=== PATIENT | male | born 1970 | race Caucasian/White ===

== ENCOUNTER → 2020-05-23 20:21 | Outpatient (CLI) | payer OTHER, SELFPAY ==
[2020-05-23 19:02] VITALS: BMI 37.6
[2020-05-23 20:43] LABS: ALB/GLOB Ratio 1.2 RATIO (0.9-2.4); AST(SGOT) 30 U/L (15-37); Absolute Lymphocyte Count 3.58 X10^3/uL (0.83-4.51); Absolute Neutrophil Count 4.5 X10^3/uL (2.0-7.7); Alanine Aminotransfer ALT/SGPT 57 U/L (16-61); Albumin, Serum 3.8 g/dL (3.2-5.0); Alkaline Phosphatase 52 U/L (45-117); Anion Gap 7 (5-15); BUN 16 mg/dL (7-18); BUN/Creat Ratio 16.7 RATIO (10-20); Basophil# 0.03 X10^3/uL; Basophil% 0.3 % (0-1); Calcium,Total 8.5 mg/dL (8.5-10.1); Chloride 111 mmol/L (98-107); Creatinine, Serum 0.96 mg/dL (0.70-1.30); EST Glomerular Filtration Rate 89 mL/min (>60); Eosinophil# 0.18 X10^3/uL; Est Glom Filt Rate - Afr Amer 108 mL/min (>60); Globulin 3.2 g/dL (2.2-4.2); Glucose 127 mg/dL (74-106); Hematocrit 46.2 % (40-54); Hemoglobin 15.5 g/dL (13.0-16.5); Lymphocyte # 3.58 X10^3/ul (4.0); Lymphocyte % 40.6 % (19-41); Mean Corp Hgb Conc 33.5 g/dL (32-36); Mean Corpuscular Hgb 31.2 pg (27.0-32.0); Mean Platelet Vol. 12.1 fl (6.2-12.0); Monocyte# 0.53 X10^3/uL; NRBC Flagged by Analyzer 0 % (0-5); Neutrophil # 4.47 X10^3/uL (2.7-7.7); Neutrophil % 50.9 % (47-70); Platelet Count 227 K/mm3 (150-450); Potassium 3.6 mmol/L (3.5-5.1); RBC Distribution Width CV 12.7 % (11.6-14.6); RBC Distribution Width SD 43.3 fl (35.1-43.9); Red Blood Count 4.97 M/mm3 (4.6-6.2); Sodium Level 143 mmol/L (136-145); White Blood Count 8.8 K/mm3 (4.4-11.0)
== END ==
PROVIDERS: Referring Provider Nurse Practitioner; Visit Provider Nurse Practitioner
DX: K21.9 Gastro-esophageal reflux disease without esophagitis (principal)
CPT/HCPCS: 80053; 85025

== ENCOUNTER → 2021-05-29 22:27 | Outpatient (CLI) | payer OTHER, SELFPAY ==
[2021-05-29 18:26] VITALS: BMI 36.7
[2021-05-29 22:44] LABS: Absolute Lymphocyte Count 3.51 X10^3/uL (0.83-4.51); Absolute Neutrophil Count 5.1 X10^3/uL (2.0-7.7); Basophil# 0.04 X10^3/uL; Basophil% 0.4 % (0-1); Eosinophil# 0.17 X10^3/uL; Eosinophils% 1.8 % (0-5); Hematocrit 48.7 % (40-54); Lymphocyte # 3.51 X10^3/ul (0.83-4.51); Lymphocyte % 36.8 % (19-41); Mean Corp Hgb Conc 32.9 g/dL (32-36); Mean Corpuscular Hgb 31.2 pg (27.0-32.0); Mean Corpuscular Volume 94.9 fL (80-94); Mean Platelet Vol. 12.5 fl (6.2-12.0); Monocyte# 0.71 X10^3/uL; Monocyte% 7.4 % (0-10); NRBC Flagged by Analyzer 0 % (0-5); Neutrophil % 53.4 % (47-70); Platelet Count 264 K/mm3 (150-450); RBC Distribution Width CV 12.7 % (11.6-14.6); RBC Distribution Width SD 44.6 fl (35.1-43.9); Red Blood Count 5.13 M/mm3 (4.6-6.2); White Blood Count 9.6 K/mm3 (4.4-11.0)
[2021-05-29 23:00] LABS: ALB/GLOB Ratio 1.3 RATIO (0.9-2.4); AST(SGOT) 31 U/L (15-37); Alanine Aminotransfer ALT/SGPT 57 U/L (16-61); Albumin, Serum 4.2 g/dL (3.2-5.0); Alkaline Phosphatase 55 U/L (45-117); Anion Gap 7 (5-15); BUN 16 mg/dL (7-18); Calcium,Total 9.2 mg/dL (8.5-10.1); Chloride 106 mmol/L (98-107); Cholesterol 230 mg/dL (200); EST Glomerular Filtration Rate 84 mL/min (>60); Est Glom Filt Rate - Afr Amer 102 mL/min (>60); Globulin 3.2 g/dL (2.2-4.2); Glucose 99 mg/dL (74-106); High Density Lipoprotein 37 mg/dL; Potassium 4.2 mmol/L (3.5-5.1); Protein, Total 7.4 g/dL (6.4-8.2); Sodium Level 143 mmol/L (136-145); Triglycerides 302 mg/dL; Very Low Density Lipoprotein 60 mg/dL (5-40)
== END ==
PROVIDERS: Visit Provider Nurse Practitioner
DX: K21.9 Gastro-esophageal reflux disease without esophagitis (principal); K44.9 Diaphragmatic hernia without obstruction or gangrene; E78.00 Pure hypercholesterolemia, unspecified
CPT/HCPCS: 80053; 80061; 85025

== ENCOUNTER → 2021-05-30 09:39 | Outpatient (CLI) | payer OTHER, SELFPAY ==
[2021-05-29 18:26] VITALS: BMI 36.7
== END ==
PROVIDERS: Referring Provider Nurse Practitioner; Visit Provider Nurse Practitioner
DX: K21.9 Gastro-esophageal reflux disease without esophagitis (principal); K44.9 Diaphragmatic hernia without obstruction or gangrene

== ENCOUNTER 2021-06-28 07:58 | Day surgery (SDC) | payer OTHER, SELFPAY ==
[2021-06-08 13:58] VITALS: BMI 36.2
[2021-06-28 08:29] VITALS: BP 113/85; PULSE 72; RESP 16; TEMP 36.4; O2SAT 98; BMI 35.9
[2021-06-28] MEDS: Lactated Ringers 1,000 ML 100 ML IV (08:34)
--- NOTE | 2021-06-28 09:00 | IMM_PTH ---
PATIENT: PEÑA FRITZ LOC: EN U#:[id number] AGE/SX: 51/M ROOM: RE06/28/[address]: Dr. Abel Hall MD : 1970 BED: DIS: 06/28/2021 SPEC #: [id number] RECD: 06/28/21 12:50 STATUS: AZAM RESmita #: [id number] JIM: 06/28/21 09:[address]: Abel Hall DEPT: IMMUNOHISTOCHEMISTRY RECD BY: Shannan Verde ENTERED: 06/28/21 12:51 SP TYPE: IMMUNO OTHR DR: Beverley Ma, DESK PEN SET ASSEMBLER-C Tissues: A - Stomach, NOS Procedures: H Pylori (initial) PHYSICIAN & INSTITUTION [place] [id number] SPECIMEN INFORMATION: Tissue Source: A ? Antrum biopsy Clinical Info: Hiatal hernia; GERD Specimen Number: [id number] CPT code: 69840 METHODOLOGY: Deparaffinized sections of prefer/formalin-fixed tissue or PAP/DQ stained slides are incubated with monoclonal/polyclonal antibodies/oligonucleotide probes. Localization is made via biotin free immunoperoxidase method. Appropriate controls are performed and reacted as expected. Results on target cell population are indicated in the following table: RESULTS: ANTIBODY / CLONE RESULT Block A H Pylori (polyclonal) negative These tests were developed and their performance characteristics determined by [facility]. They may not have been cleared or approved by the U.S. Food and Drug Administration. The FDA has determined that such clearance or approval is not necessary. INTERPRETATION: A. Antrum biopsy: Negative for Helicobacter pylori organisms. DANIELA:tony 06/29/2021
--- NOTE | 2021-06-28 09:00 | EGD_PTH ---
PATIENT: PEÑA FRITZ LOC: EN U#:[id number] AGE/SX: 51/M ROOM: RE06/28/[address]: Dr. Abel Hall MD : 1970 BED: DIS: 06/28/2021 SPEC #: [id number] RECD: 06/28/21 11:42 STATUS: AZAM ERICK #: [id number] JIM: 06/28/21 09:[address]: Abel Hall DEPT: SURGICAL PATHOLOGY RECD BY: Sara Salazar ENTERED: 06/28/21 12:33 SP TYPE: EGD BIOPSY OTHR DR: Beverley Ma, DELPHINEC Tissues: A - Gastric mucous membrane B - Gastric mucous membrane C - Gastric mucous membrane D - Sigmoid colon biopsy Procedures: Special Stain Group II Surgery Specimen Level IV Alcian Blue/PAS (control) HEADER OPERATION: Colonoscopy, EGD [place] [place] PRE-OP DIAGNOSIS: Hiatal hernia, GERD TISSUE SUBMITTED: A - Antrum biopsy for histo and H. pylori, B - Gastric polyps x3, C - GE junction biopsy, D - Sigmoid polyp biopsy MICROSCOPIC DIAGNOSIS A. Antrum biopsy: Mild gastritis. See microscopic description and comment. B. Gastric polyps x3, biopsy: Fragments of fundic gland polyps. C. GE junction, biopsy: Fragments of gastroesophageal mucosa with mild chronic inflammation. Intestinal metaplasia (goblet cell metaplasia) not identified. See comment. D. Sigmoid colon polyp, biopsy: Tubular adenoma. SJ:tony 06/29/2021 COMMENT A. The results of immunohistochemistry for Helicobacter pylori will be reported separately ([id number]). C. Alcian blue/PAS stain with matched control is used in the evaluation of the specimen. MICROSCOPIC DESCRIPTION Slides are reviewed. A. The specimen shows fragments of gastric mucosa with chronic inflammatory cell infiltrates in the lamina propria consisting of lymphocytes and plasma cells, consistent with mild chronic gastritis. GROSS DESCRIPTION A - Received in fixative is one container labeled with the patient's name and designated antrum biopsy. The specimen consists of multiple irregular fragments of light pierre soft tissue that in aggregate measure 0.7 x 0.6 x 0.1 cm. The specimen is totally submitted in one cassette. B - Received in fixative is one container labeled with the patient's name and designated gastric polyps. The specimen consists of three variable sized pieces of pierre-pink polyp that in aggregate measure 1.5 x 0.5 x 0.3 cm. The specimen is totally submitted in one cassette. C - Received in fixative is one container labeled with the patient's name and designated GE junction biopsy. The specimen consists of two irregular fragments of light pierre soft tissue that in aggregate measure 0.6 x 0.2 x 0.1 cm. The specimen is totally submitted in one cassette. D - Received in fixative is one container labeled with the patient's name and designated sigmoid polyp biopsy. The specimen consists of two irregular fragments of light pierre soft tissue that in aggregate measure 0.3 x 0.2 x 0.1 cm. The specimen is totally submitted in one cassette. / SJ:rg 06/28/21 TC:5 CPT: 55085 x4, 56724
--- NOTE | 2021-06-28 09:46 | PCM.HP.BLA ---
History and Physical Date of Service: 06/08/21 MR#:[id number]:[id number]: PEÑA SULLIVAN [facility] #:[id number]:1970 Provider:Annmarie Morales/Sex: 51/M [facility]:[place] Intake Vital Signs 06/08/21 09:58 06/08/21 13:58 Height 6 ft 2 in Weight: 282 lb 8 oz BMI 36.7 36.2 BP 115/79 Blood Pressure Location Rt brachial Position Sitting Respiration 16 Pulse 78 Pulse Source Monitor Temp 97.7 F L Temp Source Temporal Pulse Oximetry (%) 98 Oxygen Delivery Method room air Intake Visit Reasons: HIATAL HERNIA, GERD Civilian Technician Required: No Accompanied by: Self Is patient in pain?: No Allergies No Known Allergies Allergy (Verified 06/08/21 13:59) Medications pantoprazole 40 mg tablet,delayed release 40 mg PO DAILY #90 tab 05/29/21 [Rx Confirmed 06/08/21] Saccharomyces boulardii 250 mg capsule 250 mg PO DAILY cap 06/08/21 [History Confirmed 06/08/21] ascorbate calcium (vitamin C) 500 mg tablet 500 mg PO DAILY 06/08/21 [History Confirmed 06/08/21] multivitamin 1 tab PO DAILY 06/08/21 [History Confirmed 06/08/21] PFSH Medical History GERD (gastroesophageal reflux disease) Hernia Hiatal hernia Hyperlipidemia Seasonal allergies sebacous cyst removed Surgical History History of esophagogastroduodenoscopy (EGD) (~2011) S/P bilateral inguinal hernia repair (~2002) Status post left rotator cuff repair (~12/2011) Family History Father glioblastoma brain tumor Mother Diabetes Social History Smoking Status: Never smoker second hand exposure: No alcohol intake: current alcohol intake frequency: holidays/special occasions only substance use type: does not use caffeine: Yes what type of physical activity do you participate in: none frequency: does not exercise HPI HPI HPI: PEÑA SULLIVAN, is a 51 M who presents to the office today for acid reflux and hiatal hernia. They are referred for surgical consultation from Beverley Ma NP. Additional symptoms include: An uncomfortable fullness within the epigastrium when semirecumbent in a reclining chair. Symptoms have been present for at least 10 years. Mr. Sullivan notes that his initial presentation for GERD was occasioned by frequent upset stomach which he further describes as a sourness of the stomach. He was trialed on Protonix and experienced immediate relief. Subsequently, in 2011 Mr. Sullivan underwent EGD with Dr. Galvez of [facility]. It was with this study that he was diagnosed with a hiatal hernia. According to the patient's recall, he also had biopsies for H. pylori performed and these were negative. Presently, symptoms remain well controlled with Protonix. However, Mr. Sullivan quickly notices a return of symptoms when he forgets his medication. Symptoms are also associated with eating spicy foods and later in the evening near bedtime. Given the patient's age, he was asked whether or not he is received standard colonic surveillance with colonoscopy. He replied that he has not and is willing to proceed with a colonoscopy in conjunction with his EGD. He denies any personal or family history of inflammatory bowel disease, colon cancer, diverticulitis. ROS General General: No weight change, appetite, fatigue, colon cancer, breast cancer or weakness HEENT HEENT: No difficulty swallowing, eye injury, eye surgery, swollen glands or hoarseness Endo Endocrine: No thyroid disease, diabetes mellitus, thyroid cancer, Hair loss, heat intolerance or cold intolerance Skin Skin: No rash or changing moles Musc Musculoskeletal: No back problems, arthritis, rheumatoid arthritis, gout or joint pain Cardio Cardiovascular: No murmur, pacemaker, heart disease, atrial fibrillation, high blood pressure, heart attack, heart stent, palpitations, shortness of breat with exertion or chest pain Psych Psychiatric: No depression, anxiety or hearing voices Resp Respiratory: No shortness of breath, No sleep apnea, No cough, No COPD, No asthma, No emphysema and No wheezing Gastro Gastrointestinal: No abdominal pain, No nausea or vomiting, No diarrhea, No constipation, No blood in stool, Yes acid reflux, No hemorrhoids, No ulcers, No gallbladder problem and No black,tarry stools Gilbert Hematologic: No blood thinners, No blood disorders, No bleeding, No anemia and No blood clots Neuro Neurologic: No weakness Exam Const General: cooperative, healthy appearing, comfortable, no acute distress and well developed Nutritional Appearance: obese Orientation: alert, awake and oriented x3 HENMT Head: normocephalic and atraumatic Resp Effort & Inspection: normal respiratory effort and no respiratory distress Auscultation: clear to auscultation bilaterally Cardio Rate: regular rate Rhythm: regular rhythm Heart Sounds: S1 normal and S2 normal GI Inspection: normal to inspection, obesity and striae Palpation: soft and nontender Assessment and Plan Assessment and Plan (1) Hiatal hernia: Status: Acute Comment: Results of last EGD are not available given the study was performed at outside facility. Plan - Dr. Abel Hall MD: Proceed with repeat EGD under local MAC 06/28/2021 (2) GERD (gastroesophageal reflux disease): Status: Acute Qualifiers: Esophagitis presence: esophagitis presence not specified Qualified Code(s): K21.9 - Gastro-esophageal reflux disease without esophagitis Comment: Symptoms well controlled with Protonix therapy. Did briefly introduce a discussion on surgical management of hiatal hernia/gastroesophageal reflux disease. Plan - Dr. Abel Hall MD: - Proceed with repeat EGD under local MAC 06/28/2021 ?We will follow up the results of the above scope and gauge patient's interest in surgical options following this procedure. (3) Colon cancer screening: Status: Acute Comment: Patient now 51 years of age, but history suggests average colon cancer risk. Plan - Dr. Abel Hall MD: Plan will be to complete concomitant colonoscopy on 11/05/2021 under local MAC. Pre-- procedure prep discussed and paper instructions provided. Patient is also made aware that he will need to have a route sales driver with him the day of the procedure. I have re-examined the patient. There are no clinical changes since date of exam. Patient states that his prep is gone well. Output has been clear. His GERD symptoms have remained stable.
[2021-06-28 11:11] VITALS: BP 107/83; BP 113/85; PULSE 84; RESP 18; TEMP 36.4; O2SAT 94
[2021-06-28 11:15] VITALS: BP 112/76; BP 113/85; PULSE 85; RESP 18; O2SAT 96
[2021-06-28 11:20] VITALS: BP 112/79; BP 113/85; PULSE 83; RESP 18; O2SAT 95
[2021-06-28 11:29] VITALS: BP 105/74; BP 113/85; PULSE 78; RESP 18; TEMP 36.4; O2SAT 96
[2021-06-28 12:05] VITALS: BP 113/85
--- NOTE | 2021-07-02 09:49 | OP.CCLET_ITS ---
07/02/2021 Beverley Ma NP [facility] [address] [place] [id number] Re : Colonoscopy procedure for Momo Sullivan Dear Ms. Ma This procedure was performed on June. My impressions and recommendations are as follows: Impressions : - One polyp in the sigmoid colon. Biopsied. - The examination was otherwise normal on direct and retroflexion views. - One, non-bleeding polyp in the sigmoid colon, removed with a cold biopsy forceps. Resected and retrieved. Biopsied. Recommendations : - Discharge patient to home (ambulatory). - Resume regular diet. - Await pathology results. - Repeat colonoscopy in 10 years for surveillance based on pathology results. - Continue present medications. My findings are described in the full procedure note, which is enclosed. If I can be of further assistance, please feel free to contact me at Doctor phone number(s): , Work: . Sincerely, Abel Hall MD 06/28/2021 11:36:15 AM This report has been signed electronically.
--- NOTE | 2021-07-02 09:49 | OP.EGD_ITS ---
Patient Name: Momo Sullivan Procedure Date: 06/28/2021 9:39 AM Date of : 1970 Age: 51 Procedure: Upper GI endoscopy Indications: Esophageal reflux Providers: Abel Hall MD Referring MD: Beverley Ma NP Medicines: Monitored Anesthesia Care Patient Profile: He is status post EGD for hiatal hernia five years ago. Complications: No immediate complications. Estimated blood loss: Minimal. Procedure: Pre-Anesthesia Assessment: - The heart rate, respiratory rate, oxygen saturations, blood pressure, adequacy of pulmonary ventilation, and response to care were monitored throughout the procedure. - Monitored anesthesia care under the supervision of a MAINTENANCE SUPERINTENDENT was determined to be medically necessary for this procedure based on review of the patient's medical history, medications, and prior anesthesia history. After obtaining informed consent, the endoscope was passed under direct vision. Throughout the procedure, the patient's blood pressure, pulse, and oxygen saturations were monitored continuously. The gastroscope was introduced through the mouth, and advanced to the second part of duodenum. The upper GI endoscopy was somewhat difficult due to abnormal anatomy. Successful completion of the procedure was aided by performing the maneuvers documented (below) in this report. The patient tolerated the procedure well. Scope In: 9:56:35 AM Scope Out: 10:22:08 AM Total Procedure Duration Time 0 hours 25 minutes 33 seconds Findings: The major papilla was normal. No biopsies or other specimens were collected for this exam. One pedunculated polyp with bleeding and no stigmata of recent bleeding was found in the cardia. The polyp was removed with a hot snare. Resection and retrieval were complete. Estimated blood loss was minimal. One semi-sessile polyp with no bleeding and no stigmata of recent bleeding was found in the cardia. The polyp was removed with a hot snare. Resection and retrieval were complete. Estimated blood loss was minimal. Estimated blood loss: none. One tongue of salmon-colored mucosa was present. No other visible abnormalities were present. The maximum longitudinal extent of these esophageal mucosal changes was 2 cm in length. Biopsies were taken with a cold forceps for histology. Estimated blood loss was minimal. The exam of the stomach was otherwise normal. Biopsies were taken with a cold forceps in the gastric antrum for Helicobacter pylori cultures. Estimated blood loss was minimal. Impression: - Normal major papilla. No specimens collected. - One gastric polyp. Resected and retrieved. - One gastric polyp. Resected and retrieved. - Startex-colored mucosa suspicious for short-segment Elliott's esophagus. Biopsied. - Biopsies were taken with a cold forceps for Helicobacter pylori cultures. Recommendation: - Discharge patient to home (ambulatory). - Resume regular diet. - Continue present medications. - Await pathology results. Procedure Code(s): --- Professional --- 55981, Esophagogastroduodenoscopy, flexible, transoral; with removal of tumor(s), polyp(s), or other lesion(s) by snare technique CPT copyright 2017 [employer]. All rights reserved. The codes documented in this report are preliminary and upon crime scene technician review may be revised to meet current compliance requirements. Abel Hall MD 06/28/2021 11:22:38 AM This report has been signed electronically. Number of Addenda: 0 Note Initiated On: 06/28/2021 9:39 AM
--- NOTE | 2021-07-02 09:49 | OP.COLON_ITS ---
Patient Name: Momo Sullivan Procedure Date: 06/28/2021 10:22 AM Date of : 1970 Age: 51 Procedure: Colonoscopy Indications: Screening for colorectal malignant neoplasm Providers: Abel Hall MD Referring MD: Beverley Ma NP Medicines: See the Anesthesia note for documentation of the administered medications Patient Profile: He is status post EGD for hiatal hernia five years ago. This is a 51 year old male. Last Colonoscopy: none. The patient's first colonoscopy is today. Complications: No immediate complications. Estimated blood loss: Minimal. Procedure: Pre-Anesthesia Assessment: - The heart rate, respiratory rate, oxygen saturations, blood pressure, adequacy of pulmonary ventilation, and response to care were monitored throughout the procedure. - Monitored anesthesia care under the supervision of a MERCANTILE REPORTER was determined to be medically necessary for this procedure based on review of the patient's medical history, medications, and prior anesthesia history. - Monitored anesthesia care under the supervision of a MERCANTILE REPORTER was determined to be medically necessary for this procedure based on age 65 or older and severe comorbidity (greater than ASA Grade II). - The heart rate, respiratory rate, oxygen saturations, blood pressure, adequacy of pulmonary ventilation, and response to care were monitored throughout the procedure. After I obtained informed consent, the scope was passed under direct vision. Throughout the procedure, the patient's blood pressure, pulse, and oxygen saturations were monitored continuously. The adult colonoscope was introduced through the anus and advanced to the ileocecal valve. The colonoscopy was performed without difficulty. The patient tolerated the procedure well. The quality of the bowel preparation was adequate to identify polyps 6 mm and larger in size. The ileocecal valve and the rectum were photographed. Scope In: 10:25:31 AM Scope Withdrawal Time 0 hours 17 minutes 26 seconds Scope Out: 11:04:51 AM Total Procedure Duration Time 0 hours 39 minutes 20 seconds Findings: A polyp was found in the sigmoid colon. The polyp was semi-pedunculated. This was biopsied with a cold forceps for histology. Estimated blood loss was minimal. The exam was otherwise without abnormality on direct and retroflexion views. Impression: - One polyp in the sigmoid colon. Biopsied. - The examination was otherwise normal on direct and retroflexion views. - One, non-bleeding polyp in the sigmoid colon, removed with a cold biopsy forceps. Resected and retrieved. Biopsied. Recommendation: - Discharge patient to home (ambulatory). - Resume regular diet. - Await pathology results. - Repeat colonoscopy in 10 years for surveillance based on pathology results. - Continue present medications. Procedure Code(s): --- Professional --- 44771, Colonoscopy, flexible; with biopsy, single or multiple CPT copyright 2017 [employer]. All rights reserved. The codes documented in this report are preliminary and upon engineering group manager review may be revised to meet current compliance requirements. Abel Hall MD 06/28/2021 11:36:15 AM This report has been signed electronically. Number of Addenda: 0 Note Initiated On: 06/28/2021 10:22 AM
--- NOTE | 2021-07-02 09:49 | OP.CCLET_ITS ---
07/02/2021 Beverley Ma NP [facility] [address] [id number] Re : Upper GI endoscopy procedure for Momo Sullivan Dear Ms. Ma This procedure was performed on June. My impressions and recommendations are as follows: Impressions : - Normal major papilla. No specimens collected. - One gastric polyp. Resected and retrieved. - One gastric polyp. Resected and retrieved. - Ripley-colored mucosa suspicious for short-segment Elliott's esophagus. Biopsied. - Biopsies were taken with a cold forceps for Helicobacter pylori cultures. Recommendations : - Discharge patient to home (ambulatory). - Resume regular diet. - Continue present medications. - Await pathology results. My findings are described in the full procedure note, which is enclosed. If I can be of further assistance, please feel free to contact me at Doctor phone number(s): , Work: . Sincerely, Abel Hall MD 06/28/2021 11:22:38 AM This report has been signed electronically.
== END 2021-06-28 12:05 | disposition home or self-care (01) ==
LOC: EN 08:05 → AC 08:06
PROVIDERS: PCP Nurse Practitioner; Referring Provider Nurse Practitioner; Visit Provider Surgery
PROC: 0DJD8ZZ Inspection of Lower Intestinal Tract, Via Natural or Artificial Opening Endoscopic (ICD-10-PCS; CPT 45378; principal; 2021-06-28 08:55)
DX: Z12.11 Encounter for screening for malignant neoplasm of colon (principal); D12.5 Benign neoplasm of sigmoid colon; K31.7 Polyp of stomach and duodenum; K21.9 Gastro-esophageal reflux disease without esophagitis; K44.9 Diaphragmatic hernia without obstruction or gangrene; E78.5 Hyperlipidemia, unspecified; Z79.899 Other long term (current) drug therapy; G25.81 Restless legs syndrome
CPT/HCPCS: 43251; 45380; 88305; 88313; 88342; J7120

== ENCOUNTER → 2022-06-27 | Outpatient (CLI) | payer OTHER, SELFPAY ==
[2022-06-27 21:55] LABS: Absolute Lymphocyte Count 3.64 X10^3/uL (0.83-4.51); Absolute Neutrophil Count 4.9 X10^3/uL (2.0-7.7); Basophil# 0.03 X10^3/uL; Basophil% 0.3 % (0-1); Eosinophil# 0.16 X10^3/uL; Eosinophils% 1.7 % (0-5); Hematocrit 48.5 % (40-54); Hemoglobin 16.3 g/dL (13.0-16.5); Lymphocyte # 3.64 X10^3/ul (0.83-4.51); Mean Corp Hgb Conc 33.6 g/dL (32-36); Mean Corpuscular Hgb 30.9 pg (27.0-32.0); Mean Corpuscular Volume 91.9 fL (80-94); Mean Platelet Vol. 11.5 fl (6.2-12.0); Monocyte# 0.61 X10^3/uL; Monocyte% 6.5 % (0-10); NRBC Flagged by Analyzer 0 % (0-5); Neutrophil # 4.88 X10^3/uL (2.7-7.7); Neutrophil % 52.3 % (47-70); Platelet Count 263 K/mm3 (150-450); RBC Distribution Width CV 12.5 % (11.6-14.6); RBC Distribution Width SD 41.5 fl (35.1-43.9); Red Blood Count 5.28 M/mm3 (4.6-6.2); White Blood Count 9.3 K/mm3 (4.4-11.0)
[2022-06-27 22:29] LABS: ALB/GLOB Ratio 1.1 RATIO (0.9-2.4); AST(SGOT) 36 U/L (15-37); Alanine Aminotransfer ALT/SGPT 70 U/L (16-61); Alkaline Phosphatase 48 U/L (45-117); Anion Gap 7 (5-15); BUN 16 mg/dL (7-18); BUN/Creat Ratio 15.8 RATIO (10-20); Calcium,Total 9.3 mg/dL (8.5-10.1); Chloride 109 mmol/L (98-107); Cholesterol 205 mg/dL (200); Creatinine, Serum 1.01 mg/dL (0.70-1.30); EST Glomerular Filtration Rate 83 mL/min (>60); Est Glom Filt Rate - Afr Amer 100 mL/min (>60); Globulin 3.6 g/dL (2.2-4.2); Glucose 113 mg/dL (74-106); High Density Lipoprotein 36 mg/dL; PSA,Total - Annual Screen 1.93 ng/mL (0.00-4.00); Potassium 3.9 mmol/L (3.5-5.1); Protein, Total 7.6 g/dL (6.4-8.2); Sodium Level 140 mmol/L (136-145); Triglycerides 242 mg/dL; Very Low Density Lipoprotein 48 mg/dL (5-40)
== END | disposition home or self-care (01) ==
PROVIDERS: PCP Nurse Practitioner; Referring Provider Nurse Practitioner; Visit Provider Nurse Practitioner
DX: K21.9 Gastro-esophageal reflux disease without esophagitis (principal); R35.0 Frequency of micturition; E78.00 Pure hypercholesterolemia, unspecified
CPT/HCPCS: 80053; 80061; 84153; 85025; G0103

== ENCOUNTER → 2023-07-07 | Outpatient (CLI) | payer OTHER, SELFPAY ==
[2023-07-07 22:31] LABS: Absolute Lymphocyte Count 3.51 X10^3/uL (0.83-4.51); Absolute Neutrophil Count 4.7 X10^3/uL (2.0-7.7); Basophil# 0.05 X10^3/uL; Basophil% 0.6 % (0-1); Eosinophil# 0.17 X10^3/uL; Eosinophils% 1.9 % (0-5); Hematocrit 48.5 % (40-54); Hemoglobin 16.6 g/dL (13.0-16.5); Lymphocyte # 3.51 X10^3/ul (0.83-4.51); Lymphocyte % 38.7 % (19-41); Mean Corp Hgb Conc 34.2 g/dL (32-36); Mean Corpuscular Hgb 31.5 pg (27.0-32.0); Mean Platelet Vol. 11.8 fl (6.2-12.0); Monocyte# 0.59 X10^3/uL; Monocyte% 6.5 % (0-10); NRBC Flagged by Analyzer 0 % (0-5); Neutrophil # 4.74 X10^3/uL (2.7-7.7); Neutrophil % 52.1 % (47-70); Platelet Count 245 K/mm3 (150-450); RBC Distribution Width CV 12.5 % (11.6-14.6); RBC Distribution Width SD 42.5 fl (35.1-43.9); Red Blood Count 5.27 M/mm3 (4.6-6.2); White Blood Count 9.1 K/mm3 (4.4-11.0)
[2023-07-07 22:49] LABS: ALB/GLOB Ratio 1.2 RATIO (0.9-2.4); AST(SGOT) 38 U/L (15-37); Alanine Aminotransfer ALT/SGPT 81 U/L (16-61); Alkaline Phosphatase 45 U/L (45-117); Anion Gap 6 (5-15); BUN 15 mg/dL (7-18); Calcium,Total 9.1 mg/dL (8.5-10.1); Chloride 109 mmol/L (98-107); Cholesterol 213 mg/dL (200); Creatinine, Serum 0.88 mg/dL (0.70-1.30); EST Glomerular Filtration Rate 97 mL/min (>60); Est Glom Filt Rate - Afr Amer 117 mL/min (>60); Globulin 3.4 g/dL (2.2-4.2); Glucose 94 mg/dL (74-106); High Density Lipoprotein 42 mg/dL; PSA,Total - Annual Screen 2.03 ng/mL (0.00-4.00); Potassium 3.7 mmol/L (3.5-5.1); Protein, Total 7.4 g/dL (6.4-8.2); Sodium Level 139 mmol/L (136-145); Triglycerides 124 mg/dL; Very Low Density Lipoprotein 25 mg/dL (5-40)
== END | disposition home or self-care (01) ==
PROVIDERS: PCP Nurse Practitioner; Visit Provider Nurse Practitioner
DX: E78.1 Pure hyperglyceridemia (principal); R35.0 Frequency of micturition; K21.9 Gastro-esophageal reflux disease without esophagitis
CPT/HCPCS: 80053; 80061; 84153; 85025; G0103

== ENCOUNTER → 2023-08-02 | Outpatient (CLI) | payer OTHER, SELFPAY ==
--- NOTE | 2023-08-02 08:00 | MRI_ITS ---
STUDY: MRI CERVICAL SPINE WITHOUT CONTRAST REASON FOR EXAM: Male, 53 years old. PAIN TECHNIQUE: Standardized fat and water weighted pulse sequences were obtained in the sagittal and axial planes. COMPARISON: None FINDINGS: Normal foramen magnum and brainstem-cervical cord junction. Normal craniovertebral junction. Normal anterior atlantoaxial articulation. Normal odontoid process. There is straightening of the normal cervical lordosis. Normal vertebral bodies and posterior osseous elements. C2-3: Normal endplates. Normal disc height, signal and morphology. Normal central canal and intervertebral neural foramina. C3-4: Normal endplates. Normal disc height, signal and morphology. Normal central canal and intervertebral neural foramina. C4-5: Normal endplates. Normal disc height, signal and morphology. Normal central canal and intervertebral neural foramina. C5-6: Moderate broad disc osteophyte complex asymmetric to the right produces moderate spinal stenosis with abutment of the right hemicord and mild right neural foraminal stenosis. C6-7: Moderate broad disc osteophyte complex asymmetric the right produces moderate spinal stenosis with abutment of the central spinal cord and mild left neural foraminal stenosis. C7-T1: Normal endplates. Normal disc height, signal and morphology. Normal central canal and intervertebral neural foramina. Normal cervical cord. Normal visualized soft tissue structures. MRI/Spine Cervical (Routine) IMPRESSION: Multilevel degenerative changes, as described above. Electronically Signed: Marco Sloan MD at 22:02 EDT ,
== END | disposition home or self-care (01) ==
PROVIDERS: PCP Nurse Practitioner; Referring Provider Orthopaedic Surgery; Visit Provider Orthopaedic Surgery
DX: M54.2 Cervicalgia (principal)
CPT/HCPCS: 72141

== ENCOUNTER → 2023-12-01 | Outpatient (CLI) | payer OTHER, SELFPAY ==
--- OUTSIDE RECORDS SUMMARY | 2023-12-01 07:23 | XMS RPT_ITS | CCD ---
Author Name Unknown Address [address] [place] [address] Organization [facility] Care Team Providers Care Nanny Babysitter Name Role Phone Anil ABAD.Lashell ACEVEDO Primary Care Provide r Problems Problem Classification Problem Date Documented Da te Episodic/Chronic Spondylosis; intervertebral disc disorders; other back problems (1 source) Radiculopathy, cervical region; Translations: [Radiculopathy, cervical region] Onset: 07-08-2023 Episodic Results Test Name Value Interpretation Reference Range Facil ity Encounters Encounter Date Encounter Type Care Provider Facility Start: 07-08-2023 ambulatory LASHELL TOTH Facil ity:[facility] Start: 07-08-2023 End: 07-08-2023 Subsequent hospital visit by physician [facility] Plan of Treatment Date Care Activity Detail Author Start: 07-18-2023 Influenza vaccination INFLUENZA (#1) [facility] Start: 11-17-2022 DEPRESSION ASSESSMENT DEPRESSION ASS ESSMENT [facility] Start: 2021 SHINGRIX VACCINE (1 of 2) SHINGRIX V ACCINE (1 of 2) [facility] Start: 2016 COLOGUARD (FIT-DNA) COLOGUARD (FIT-D NA) [facility] Start: 2016 Colonoscopy COLONOSCOPY [facility] Start: 2016 COLORECTAL CANCER SCREENING COLORECTAL CANCER SCREENING [facility] Start: [address] COLONOGRAPHY [facility] Start: 2016 DIABETES SCREEN DIABETES SCREEN [facility] Start: 2016 FECAL OCCULT BLOOD FECAL OCCULT BLOO D [facility] Start: 2016 [facility] Start: 2006 LIPID SCREEN LIPID SCREEN [facility] Start: 1990 Urine microalbumin profile DTAP,TDAP ,TD (1 - Tdap) [facility] Start: 1989 HEPATITIS C SCREENING HEPATITIS C SC AURELIO [facility] Start: 1989 HIV SCREENING [facility] Start: 1971 COVID-19 VACCINE (#1) COVID-19 VACCI NE (#1) [facility] Start: 1971 HEPATITIS B (1 of 3 - 3-dose series) HEPATITIS B (1 of 3 - 3-dose series) [facility] Payers Date Payer Category Payer Private Health Insurance [employer] A ETNA POS [id number] 2014-Present [phone] [address] [place] [address] POS [id number] 2014 Private Health Insurance [id number] Social History Date Type Detail Facility [facility] Start: 1970 Sex Assigned At Not on file [facility] Gender identity Not on file [facility] inic Note 07-08-2023 [facility] - Zahra Reid RT(R) - 07/08/2023 8:00 AM EDT Note Date & Type Note Facility 07-08-2023 Miscellaneous Notes Formattin g of this note might be different from the original. Radiology Service Progress Note PATIENT NAME: Momo Sullivan DATE OF SERVICE: July 08, 2023 TIME: 8:45 AM PATIENT IDENTITY VERIFICATION COMPLETED USING TWO (2) IDENTIFIERS: Name and Date of confirmed by patient verbally. FALL SCREENING: Has the patient had 2 falls in the last year or 1 fall with injury or currently using an Ambulatory Assistive Device (Walker, Cane, Wheelchair, Crutches, etc.)? No PATIENT GENDER DATA: Male PATIENT RELEVANT IMPLANT DATA REVIEWED: Yes RADIOLOGY DEPARTMENT: General X-ray: Exam(s) Completed: Spine X-Ray(s): Cervical AP / LAT / OBL PERIPHERAL IV DATA: Not applicable SIGNED BY: RT Randal(R) July 08, 2023 8:45 AM documented in this encounter [facility] Summary Purpose Family History No Family History Records FoundNo Family History Records Found Advance Directives No Advanced Directives Records FoundNo Advanced Directives Records Found Additional Source Comments (unrecognized sect ion and content) No Status Records FoundNo Status Records Found INFORMATION SOURCE (unrecogn ized section and content) DATE CREATED AUTHOR AUTHOR'S ORGANIZ ATION 07/12/2023 [facility] Source Comments (unrecognize d section and content) In the event this informatio n is protected by the Federal Confidentiality of Alcohol and Drug Abuse Patient Records regulations: The Federal rules restrict any use of the information to criminally investigate or prosecute any alcohol or drug abuse patient.[facility] Care Teams (unrecognized sec tion and content) FOR RECORDS PERTAINING TO PATIENTS WHO ARE OR HAVE BEEN ENROLLED IN A CHEMICAL DEPENDENCY/SUBSTANCEABUSE PROGRAM, SOME INFORMATION MAY BE OMITTED. This clinical summary was aggregated from multiple sources. Caution should be exercised in using it in the provision of clinical care. This summary normalizes information from multiple sources, and as a consequence, information in this document may materially change the coding, format and clinical context of patient data. In addition, data may be omitted in some cases. CLINICAL DECISIONS SHOULD BE BASED ON THE PRIMARY CLINICAL RECORDS. [facility]. provides no warranty or guarantee of the accuracy or completeness of information in this document.
--- NOTE | 2023-12-01 07:28 | MRI_ITS ---
STUDY: MRI LUMBAR SPINE WITHOUT CONTRAST REASON FOR EXAM: Male, 53 years old. pain TECHNIQUE: Standardized fat and water weighted pulse sequences were obtained in the sagittal and axial planes. COMPARISON: X-ray the lumbar spine dated October 02, 2023 FINDINGS: Normal lumbar lordosis. There is no substantial scoliosis. Normal conus medullaris that terminates at the L1 level. No marrow edema or fracture or compression deformity is present. T12-L1: Diffuse disc desiccation with mild to moderate disc space narrowing and a shallow posterior disc protrusion. Small Schmorl''s node and endplate degenerative signal. Normal bilateral facet joints. Normal central canal and bilateral lateral recesses. Normal bilateral intervertebral neural foramina. L1-2: Normal endplates. Normal disc height, hydration and morphology. Normal bilateral facet joints. Normal central canal and bilateral lateral recesses. Normal bilateral intervertebral neural foramina. L2-3: Normal endplates. Normal disc height, hydration and morphology. Normal bilateral facet joints. Normal central canal and bilateral lateral recesses. Normal bilateral intervertebral neural foramina. L3-4: Normal endplates. Mild disc desiccation. Normal disc height and morphology. Normal bilateral facet joints. Normal central canal and bilateral lateral recesses. Normal bilateral intervertebral neural foramina. L4-5: Normal endplates. Diffuse disc desiccation with mild posterior disc space narrowing and a midline broad-based but shallow disc protrusion causing mild central canal stenosis as well as left lateral recess stenosis with compression of the descending nerve root. Mild facet joint and ligament of flavum hypertrophy. Normal bilateral intervertebral neural foramina. Normal right lateral recess. L5-S1: Moderate Modic endplate degenerative signal. Diffuse disc desiccation with moderate disc space narrowing with diffuse disc bulging and endplate spurring. Mild Modic endplate degenerative signal. Normal bilateral facet joints. Normal central canal and bilateral lateral recesses. Normal bilateral intervertebral neural foramina. Normal visualized sacral ala. Normal visualized paraspinous soft tissue structures. MRI/Spine Lumbar (Routine) IMPRESSION: 1. Multilevel degenerative changes, as described above. 2. Mild central canal stenosis and left lateral recess stenosis with nerve root compression at L4-L5. Electronically Signed: Hi Hernandez MD at 11:24 EST ,
== END | disposition home or self-care (01) ==
PROVIDERS: PCP Nurse Practitioner; Referring Provider Orthopaedic Surgery; Visit Provider Orthopaedic Surgery
DX: M51.26 Other intervertebral disc displacement, lumbar region (principal)
CPT/HCPCS: 72148

== ENCOUNTER → 2024-07-07 | Outpatient (CLI) | payer BC, SELFPAY ==
[2024-07-07 22:28] LABS: Absolute Lymphocyte Count 3.28 X10^3/uL (0.83-4.51); Absolute Neutrophil Count 5.1 X10^3/uL (2.0-7.7); Basophil# 0.04 X10^3/uL; Basophil% 0.4 % (0-1); Eosinophil# 0.25 X10^3/uL; Eosinophils% 2.7 % (0-5); Hematocrit 47.1 % (40-54); Hemoglobin 15.9 g/dL (13.0-16.5); Lymphocyte # 3.28 X10^3/ul (0.83-4.51); Lymphocyte % 35.8 % (19-41); Mean Corp Hgb Conc 33.8 g/dL (32-36); Mean Corpuscular Hgb 30.9 pg (27.0-32.0); Mean Corpuscular Volume 91.5 fL (80-94); Mean Platelet Vol. 12.1 fl (6.2-12.0); Monocyte# 0.47 X10^3/uL; Monocyte% 5.1 % (0-10); NRBC Flagged by Analyzer 0 % (0-5); Neutrophil % 55.8 % (47-70); Platelet Count 248 K/mm3 (150-450); RBC Distribution Width CV 12.8 % (11.6-14.6); RBC Distribution Width SD 43.3 fl (35.1-43.9); Red Blood Count 5.15 M/mm3 (4.6-6.2); White Blood Count 9.2 K/mm3 (4.4-11.0)
[2024-07-07 22:59] LABS: ALB/GLOB Ratio 1.2 RATIO (0.9-2.4); AST(SGOT) 25 U/L (15-37); Alanine Aminotransfer ALT/SGPT 39 U/L (16-61); Albumin, Serum 3.7 g/dL (3.2-5.0); Alkaline Phosphatase 45 U/L (45-117); Anion Gap 5 (5-15); BUN 16 mg/dL (7-18); BUN/Creat Ratio 19.3 RATIO (10-20); Calcium,Total 8.8 mg/dL (8.5-10.1); Chloride 110 mmol/L (98-107); Cholesterol 203 mg/dL (200); Creatinine, Serum 0.83 mg/dL (0.70-1.30); EST Glomerular Filtration Rate 103 mL/min (>60); Est Glom Filt Rate - Afr Amer 125 mL/min (>60); Globulin 3.2 g/dL (2.2-4.2); Glucose 110 mg/dL (74-106); High Density Lipoprotein 42 mg/dL; PSA,Total - Annual Screen 2.33 ng/mL (0.00-4.00); Potassium 3.5 mmol/L (3.5-5.1); Protein, Total 6.9 g/dL (6.4-8.2); Sodium Level 140 mmol/L (136-145); Triglycerides 183 mg/dL; Very Low Density Lipoprotein 37 mg/dL (5-40)
== END | disposition home or self-care (01) ==
PROVIDERS: PCP Nurse Practitioner; Referring Provider Nurse Practitioner; Visit Provider Nurse Practitioner
DX: K21.9 Gastro-esophageal reflux disease without esophagitis (principal); E78.1 Pure hyperglyceridemia; E78.00 Pure hypercholesterolemia, unspecified; R35.0 Frequency of micturition
CPT/HCPCS: 80053; 80061; 84153; 85025; G0103

== ENCOUNTER → 2025-07-20 | Outpatient (CLI) | payer BC, SELFPAY ==
[2025-07-20 22:54] LABS: Hematocrit 46.7 % (40-54); Hemoglobin 15.8 g/dL (13.0-16.5); Immature Granulocytes Count 0.020 X10^3/uL (0.0-0.0); Mean Corp Hgb Conc 33.8 g/dL (32-36); Mean Corpuscular Volume 90.9 fL (80-94); Mean Platelet Vol. 12.0 fl (6.2-12.0); NRBC Flagged by Analyzer 0 % (0-5); Platelet Count 243 K/mm3 (150-450); RBC Distribution Width CV 12.7 % (11.6-14.6); RBC Distribution Width SD 42.2 fl (35.1-43.9); Red Blood Count 5.14 M/mm3 (4.6-6.2); White Blood Count 9.1 K/mm3 (4.4-11.0)
[2025-07-20 23:09] LABS: AST(SGOT) 43 U/L (<=37); Alanine Aminotransfer ALT/SGPT 58 U/L (<=46); Albumin, Serum 4.2 g/dL (3.5-5.0); Alkaline Phosphatase 48 U/L (40-129); Anion Gap 12 (5-15); BUN 13 mg/dL (4-19); BUN/Creat Ratio 15.4 RATIO (10-20); Calcium,Total 9.4 mg/dL (7.6-11.0); Carbon Dioxide 21.1 mmol/L (21.0-32.0); Chloride 107 mmol/L (98-108); Cholesterol 219 mg/dL (<=200); Globulin 2.6 g/dL (2.2-4.2); Glucose 94 mg/dL (70-99); Low Density Lipoprotein Calc. 128 mg/dL; PSA,Total - Annual Screen 2.58 ng/mL (0.02-4.00); Potassium 4.0 mmol/L (3.3-5.1); Triglycerides 274 mg/dL; Very Low Density Lipoprotein 55 mg/dL (5-40); cholesterol:hdl ratio screen 5.97
== END | disposition home or self-care (01) ==
PROVIDERS: PCP Nurse Practitioner; Visit Provider Nurse Practitioner
DX: Z00.00 Encounter for general adult medical examination without abnormal findings (principal)
CPT/HCPCS: 80053; 80061; 84153; 85025; G0103